=== PATIENT | female | born 1940 | race Caucasian/White ===

== ENCOUNTER 2018-11-25 07:15 | Emergency (ER) | payer OTHER, BC ==
[~2018-11-25] VITALS: Ht 152.4 cm; Wt 61.2 kg
== END 2018-11-25 15:54 | disposition home or self-care (01) ==
LOC: ER 07:15
DX: S80.02XA Contusion of left knee, initial encounter (principal); S80.01XA Contusion of right knee, initial encounter; S40.011A Contusion of right shoulder, initial encounter; W06.XXXA Fall from bed, initial encounter; Y93.89 Activity, other specified; Y92.092 Bedroom in other non-institutional residence as the place of occurrence of the external cause; Y99.8 Other external cause status